=== PATIENT | female | born 2000 | race African-American/Black ===

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

== ENCOUNTER 2022-01-17 01:44 | Emergency (ER) | payer OTHER, SELFPAY ==
[2022-01-17] MEDS ORDERED: Metoclopramide HCl 10 MG/2 ML VIAL ONE (02:33)
[2022-01-17] MEDS ORDERED: Ketorolac Tromethamine 30 MG/ML VIAL ONE (02:33)
[2022-01-17] MEDS ORDERED: diphenhydrAMINE 12.5 MG/5 ML UDCUP ONE (02:33)
[2022-01-17] MEDS ORDERED: diphenhydrAMINE 50 MG/ML VIAL ONE (02:35)
[2022-01-17] MEDS ORDERED: Ondansetron PF 4 MG/2 ML Vial ONE (03:18)
== END 2022-01-17 03:49 | disposition home or self-care (01) ==
LOC: ERS 01:44
DX: S09.90XA Unspecified injury of head, initial encounter (principal); W50.0XXA Accidental hit or strike by another person, initial encounter; Y93.72 Activity, wrestling
CPT/HCPCS: 96365; 96375; J1200; J1885; J2405; J2765; Q0163

== ENCOUNTER 2022-01-17 22:26 | Emergency (ER) | payer SELFPAY ==
[2022-01-17] MEDS ORDERED: diphenhydrAMINE 50 MG/ML VIAL ONE (23:20)
[2022-01-17] MEDS ORDERED: Metoclopramide HCl 10 MG/2 ML VIAL ONE (23:20)
[2022-01-17] MEDS ORDERED: Ketorolac Tromethamine 30 MG/ML VIAL ONE (23:20)
== END 2022-01-18 01:10 | disposition home or self-care (01) ==
LOC: ERS 22:26
DX: S06.0X9A Concussion with loss of consciousness of unspecified duration, initial encounter (principal); W22.8XXA Striking against or struck by other objects, initial encounter
CPT/HCPCS: 70450; 96365; 96375; J1200; J1885; J2765

== ENCOUNTER 2022-01-25 16:45 | Emergency (ER) | payer SELFPAY ==
[2022-01-25 17:36] LABS: Bilirubin Negative (Negative); Blood, Urine 3+ (Negative); Clarity Extra Turbid (Clear); Glucose, Urine (Dipstick) Normal (Negative); Ketone, Urine Trace mg/dL (Negative); Leukocyte 500 Leu/uL (Negative); Nitrite Negative (Negative); Protein, Urine (Dipstick) 100 mg/dL (Neg-Trace); Specific Gravity, Urine 1.034 (1.002-1.036); Urobilinogen Normal mg/dL (Less than 2)
[2022-01-25 17:49] LABS: RBC/HPF Greater than 50 HPF (0-3)
[2022-01-25 17:50] LABS: Bacteria/HPF 3+ HPF (None Seen); Yeast-Budding 1+ HPF (None Seen)
[2022-01-25] MEDS ORDERED: Fluconazole 100 MG TAB PO SCH (19:00)
== END 2022-01-25 19:16 | disposition home or self-care (01) ==
LOC: ERS 16:45
DX: N30.00 Acute cystitis without hematuria (principal); N76.0 Acute vaginitis
CPT/HCPCS: 81003; 81015; 87077; 87086; 99284

== ENCOUNTER 2022-05-19 16:26 | Emergency (ER) | payer SELFPAY ==
[2022-05-19 17:55] LABS: Bilirubin Negative (Negative); Blood, Urine Negative (Negative); Clarity Clear (Clear); Glucose, Urine (Dipstick) Normal (Negative); Ketone, Urine Negative (Negative); Leukocyte Negative Leu/uL (Negative); Nitrite Negative (Negative); Protein, Urine (Dipstick) Negative (Neg-Trace); Specific Gravity, Urine 1.018 (1.002-1.036); Urobilinogen Normal mg/dL (Less than 2); pH, Urine 6.5 (5.0-9.0)
[2022-05-19 17:59] LABS: Pregnancy Test - Urine (BHCG) Negative (Negative); Pregu Control Background? CLEAR/WHITE (CLR/WHITE); Pregu Control Bar Appear? YES (CONTROL BAR); Specific Gravity 1.018 (1.002-1.036)
[2022-05-19] MEDS ORDERED: Azithromycin 250 MG TAB ONE (18:26)
[2022-05-19] MEDS ORDERED: cefTRIAXone\\ROCEPHIN 1 GM VIAL ONE (18:26)
[2022-05-19] MEDS ORDERED: Lidocaine 2% PF 5 ML VIAL ONE (18:27)
[2022-05-19] MEDS ORDERED: Lidocaine 1% PF 5 ML VIAL ONE (18:31)
== END 2022-05-19 19:03 | disposition home or self-care (01) ==
LOC: ERS 16:26
DX: N89.8 Other specified noninflammatory disorders of vagina (principal)
CPT/HCPCS: 81003; 81025; 96372; 99283; J0696; J2001

== ENCOUNTER 2022-08-31 17:44 | Emergency (ER) | payer SELFPAY ==
[2022-08-31 19:59] LABS: #Eosinphils 0.1 thou/uL (0.0-0.7); #Lymphocytes 2.4 thou/uL (1.20-3.40); #Monocytes 0.4 thou/uL (0.11-0.59); %Basophils 0.3 % (0.0-1.0); %Eosinophils 1.4 % (0.0-10.0); %Lymphocytes 30.5 % (28.0-48.0); %Monocytes 5.2 % (0.0-4.0); %Neutrophils 62.6 % (31.0-61.0); Hemoglobin 13.5 g/dL (12.0-16.0); Mean Corpuscular HGB CONC 33.7 g/dL (32.0-36.0); Mean Corpuscular Hemoglobin 33.2 pg (25.0-35.0); Mean Corpuscular Volume 98.5 fl (78.0-98.0); Mean Platelet Volume 7.7 fL (7.4-10.4); Platelet Count 210 10x3/uL (130-400); RBC Distribution Width 12.6 % (11.5-14.5); Red Blood Cell (RBC) Count 4.05 mill/uL (4.00-5.20)
[2022-08-31 20:07] LABS: BHCG - Serum Negative (NEGATIVE); Pregs Control Background? CLEAR/WHITE (CLR/WHITE); Pregs Control Bar Appear? YES (CONTROL BAR)
== END 2022-08-31 20:39 | disposition home or self-care (01) ==
LOC: ERS 17:44
DX: R53.83 Other fatigue (principal); S40.022A Contusion of left upper arm, initial encounter; S40.021A Contusion of right upper arm, initial encounter
CPT/HCPCS: 36415; 84703; 85025; 99283

== ENCOUNTER 2023-10-31 20:33 | Emergency (ER) | payer SELFPAY ==
[2023-11-01] MEDS ORDERED: Bacitracin 1 PK ONE (00:02)
== END 2023-11-01 00:06 | disposition home or self-care (01) ==
LOC: ERS 20:33
DX: S91.012A Laceration without foreign body, left ankle, initial encounter (principal); Z75.3 Unavailability and inaccessibility of health-care facilities; Z55.6 Problems related to health literacy; W23.1XXA Caught, crushed, jammed, or pinched between stationary objects, initial encounter
CPT/HCPCS: 12042

== ENCOUNTER 2025-04-18 19:23 | Emergency (ER) | payer OTHER ==
[2025-04-18] MEDS ORDERED: Acetaminophen 325 MG TAB ONE (20:37)
[2025-04-18 20:38] LABS: #Basophils Less than 0.03 10x3/uL (0.0-0.2); #Eosinophils 0.06 10x3/uL (0.0-0.7); #Monocytes 0.55 10x3/uL (0.11-0.59); #Neutrophils 5.93 10x3/uL (1.40-6.50); %Basophils 0.2 % (0.0-1.0); %Eosinophils 0.7 % (0.0-10.0); %Lymphocytes 27.1 % (21.0-51.0); %Monocytes 6.1 % (0.0-10.0); %Neutrophils 65.7 % (42.0-75.0); Hematocrit 39.0 % (36.0-47.0); Hemoglobin 13.3 g/dL (12.0-16.0); Mean Corpuscular Hemoglobin 30.8 pg (27.0-31.0); Mean Corpuscular Volume 90.3 fL (78.0-98.0); Platelet Count 195 10x3/uL (130-400); Red Blood Cell (RBC) Count 4.32 mill/uL (4.20-5.40); White Blood Cell (WBC) Count 9.03 10x3/uL (4.8-10.8)
[2025-04-18 21:02] LABS: ALT (SGPT) 9 U/L (Less than 34); AST (SGOT) 22 U/L (11-34); Albumin 4.5 g/dL (3.1-4.5); Alkaline Phosphatase 58 U/L (40-110); Anion Gap 17 mmol/L (10-20); BUN (Urea Nitrogen) 13 mg/dL (7.0-18.7); Bilirubin, Total 0.5 mg/dL (0.3-1.2); Calc. Creatinine Clearance 0 mL/min (70-130); Calcium 9.2 mg/dL (7.8-10.44); Carbon Dioxide 18 mmol/L (22-29); Chloride 109 mmol/L (98-107); Globulin 2.5 g/dL (2.4-3.5); Glucose 104 mg/dL (70-105); Potassium 4.0 mmol/L (3.5-5.1); Sodium 140 mmol/L (136-145)
[2025-04-18 21:07] LABS: Bacteria/HPF None Seen HPF (None Seen); CAUTI Indications for Culture Pelvic or flank pain; Glucose, Urine (Dipstick) Normal (Negative); Leukocyte Negative Leu/uL (Negative); Protein, Urine (Dipstick) Negative (Neg-Trace); RBC/HPF 0-3 HPF (0-3); Specific Gravity, Urine 1.029 (1.002-1.036); WBC/HPF None Seen HPF (0-3)
[2025-04-18 21:11] LABS: Pregnancy Test - Urine (BHCG) Negative (Negative); Pregu Control Background? CLEAR/WHITE (CLR/WHITE); Pregu Control Bar Appear? YES (CONTROL BAR); Urine Culture Reflex No No
== END 2025-04-18 21:51 | disposition home or self-care (01) ==
LOC: ERS 19:23
DX: R07.89 Other chest pain (principal); N35.92 Unspecified urethral stricture, female
CPT/HCPCS: 71045; 80053; 81001; 81025; 84484; 85025; 93005